=== PATIENT | female | born 1980 | race Caucasian/White ===

== ENCOUNTER 2019-03-15 14:12 | Inpatient (IN) | payer MEDICAID, OTHER ==
[~2019-03-15] VITALS: Ht 165.1 cm; Wt 64.4 kg
[~2019-03-15 14:12] MED LIST: DIVA-78 PO; LEVO25TA9 PO; MIRT-92 PO; PRAZ2 PO; QUET200T PO; QUET300T2 PO; TRAZ-257 PO
[2019-03-15] MEDS ORDERED: HALOPERIDOL 5 MG TABLET PO ONE (18:45)
[2019-03-15 19:13] LABS: AMPHET/METH SCREEN,URINE NEGATIVE (NEGATIVE); BARBITURATE SCREEN, URINE NEGATIVE (NEGATIVE); BENZODIAZEPINES SCREEN,URINE NEGATIVE (NEGATIVE); CANNABINOID SCREEN,URINE NEGATIVE (NEGATIVE); COCAINE SCREEN,URINE NEGATIVE (NEGATIVE); METHADONE SCREEN, URINE NEGATIVE (NEGATIVE); OPIATE SCREEN,URINE NEGATIVE (NEGATIVE)
[2019-03-15 19:14] LABS: PHENCYCLIDINE SCREEN,URINE NEGATIVE (NEGATIVE)
[2019-03-15] MEDS ORDERED: ZOLPIDEM TARTRATE 10 MG TABLET PO PRN (20:00)
[2019-03-15 20:20] LABS: BASOPHILS % (AUTO) 1.1 % (0.0-2.0); EOSINOPHILS % (AUTO) 2.1 % (1.0-6.0); HEMATOCRIT 31.5 % (36-46); HEMOGLOBIN 10.5 g/dL (12.0-16.0); LYMPHOCYTES # (AUTO) 2.3 K/uL (1.0-4.8); LYMPHOCYTES % (AUTO) 23.8 % (22.0-44.0); MEAN CORPUSCULAR HEMOGLOBIN 27.9 pg (26.0-34.0); MEAN CORPUSCULAR HGB CONC 33.3 G/dL (31.0-37.0); MEAN CORPUSCULAR VOLUME 84 fL (80-100); MONOCYTES # (AUTO) 0.9 K/uL (0.1-1.0); MONOCYTES % (AUTO) 9.3 % (2.0-9.0); NEUTROPHILS # (AUTO) 6.2 K/uL (1.8-7.7); NEUTROPHILS % (AUTO) 63.7 % (40.0-70.0); PLATELET COUNT (AUTO) 284 K/uL (150-450); RED BLOOD CELL COUNT(AUTO) 3.76 MIL/uL (4.00-5.20); RED CELL DISTRIBUTION WIDTH 13.5 % (11.5-14.5)
[2019-03-15 20:34] LABS: ANION GAP 9 mmol/L (8-16); CALCIUM, TOTAL 8.5 mg/dL (8.8-10.5); CARBON DIOXIDE 26 mmol/L (22-29); CHLORIDE 104 mmol/L (98-107); CREATININE 0.71 mg/dL (0.60-1.30); GLOMERULAR FILTR. RATE CALC > 60 mL/min (>60); GLUCOSE,RANDOM 126 mg/dL (70-110); POTASSIUM 4.1 mmol/L (3.5-5.1); SODIUM SERUM 139 mmol/L (136-145); UREA NITROGEN, BLOOD 16 mg/dL (7-18)
[2019-03-15 20:38] LABS: ALANINE AMINOTRANSFERASE 12 U/L (12-78); ALBUMIN 3.5 g/dL (3.4-5.0); ALKALINE PHOSPHATASE 49 U/L (46-116); ASPARTATE AMINOTRANSFERASE 13 U/L (15-37); BILIRUBIN,TOTAL 0.1 mg/dL (0.1-1.0); TOTAL PROTEIN, SERUM 6.5 g/dL (6.4-8.2)
[2019-03-15 22:21] VITALS: BP 128/75
[2019-03-15] MEDS ORDERED: ALBUTEROL SULFATE HFA 90 MCG/PUFF 8 GM INHALER IH PRN (23:00)
[2019-03-15] MEDS ORDERED: PETROLATUM,WHITE 28 GM JELLY TP PRN (23:00)
[2019-03-15] MEDS ORDERED: CloNIDine HCL 0.1 MG TABLET PO PRN (23:00)
[2019-03-15] MEDS ORDERED: DOCUSATE SODIUM 100 MG CAPSULE PO PRN (23:00)
[2019-03-15] MEDS ORDERED: LOPERAMIDE HCL 2 MG CAPSULE PO PRN (23:00)
[2019-03-15] MEDS ORDERED: GuaiFENesin/D-METHORPHAN [SUGAR-FREE] 200-20MG/10 ML SYRUP UDCUP PO PRN (23:00)
[2019-03-15] MEDS ORDERED: MAG HYDROX/AL HYDROX/SIMETH ES 30 ML SUSPENSION UDCUP PO PRN (23:00)
[2019-03-15] MEDS ORDERED: ONDANSETRON HCL 4 MG TABLET PO PRN (23:00)
[2019-03-15] MEDS ORDERED: MAGNESIUM HYDROXIDE SUSPENSION 30 ML UDCUP PO PRN (23:00)
[2019-03-16] MEDS: LEVOTHYROXINE SODIUM 25 MCG TABLET PO SCH (07:07)
[2019-03-16 07:46] LABS: HEMOGLOBIN A1C 5.7 % (4.5-6.2)
[2019-03-16 07:52] LABS: CHOL/HDL RATIO 5.5 (3.9-5.7)
[2019-03-16 08:57] VITALS: BP 119/56
[2019-03-16] MEDS: QUEtiapine FUMARATE 200 MG TABLET PO SCH ×2 (12:57→17:03)
[2019-03-16] MEDS: LORazepam 2 MG TABLET PO PRN (14:27)
[2019-03-16] MEDS: HALOPERIDOL 5 MG TABLET PO PRN (14:27)
[2019-03-16] MEDS: DIVALPROEX SODIUM 500 MG DR TABLET PO SCH (17:03)
[2019-03-16 18:12] VITALS: BP 114/77
[2019-03-16] MEDS: MIRTAZAPINE 15 MG TABLET PO SCH (20:19)
[2019-03-16] MEDS: TraZODone HCL 100 MG TABLET PO SCH (20:19)
[2019-03-16] MEDS: PRAZOSIN HCL 2 MG CAPSULE PO SCH (20:19)
[2019-03-17] MEDS: LEVOTHYROXINE SODIUM 25 MCG TABLET PO SCH (06:55)
[2019-03-17 08:20] VITALS: BP 97/66
[2019-03-17] MEDS: QUEtiapine FUMARATE 200 MG TABLET PO SCH ×3 (08:38→16:34)
[2019-03-17] MEDS: DIVALPROEX SODIUM 500 MG DR TABLET PO SCH ×2 (08:38→16:32)
[2019-03-17 16:34] VITALS: BP 103/67
[2019-03-17] MEDS: TraZODone HCL 100 MG TABLET PO SCH (20:29)
[2019-03-17] MEDS: PRAZOSIN HCL 2 MG CAPSULE PO SCH (20:29)
[2019-03-17] MEDS: MIRTAZAPINE 15 MG TABLET PO SCH (20:29)
[2019-03-18] MEDS: LEVOTHYROXINE SODIUM 25 MCG TABLET PO SCH (07:02)
[2019-03-18] MEDS: DIVALPROEX SODIUM 500 MG DR TABLET PO SCH ×2 (08:50→16:31)
[2019-03-18] MEDS: OMEGA-3/DHA/EPA/FISH OIL 1,000 MG CAPSULE PO SCH (08:50)
[2019-03-18] MEDS: QUEtiapine FUMARATE 200 MG TABLET PO SCH ×3 (08:50→16:31)
[2019-03-18 09:06] VITALS: BP 104/68
[2019-03-18] MEDS: HALOPERIDOL 5 MG TABLET PO PRN (10:00)
[2019-03-18] MEDS: LORazepam 2 MG TABLET PO PRN ×2 (10:00→16:31)
[2019-03-18 17:55] VITALS: BP 102/77
[2019-03-18 20:48] VITALS: BP 111/65
[2019-03-18] MEDS: PRAZOSIN HCL 2 MG CAPSULE PO SCH (20:49)
[2019-03-18] MEDS: TraZODone HCL 100 MG TABLET PO SCH (20:49)
[2019-03-18] MEDS: MIRTAZAPINE 15 MG TABLET PO SCH (20:50)
[2019-03-19] MEDS: LEVOTHYROXINE SODIUM 25 MCG TABLET PO SCH (06:32)
[2019-03-19] MEDS: OMEGA-3/DHA/EPA/FISH OIL 1,000 MG CAPSULE PO SCH (07:44)
[2019-03-19] MEDS: HALOPERIDOL 5 MG TABLET PO PRN ×2 (07:45→13:49)
[2019-03-19] MEDS: LORazepam 2 MG TABLET PO PRN ×2 (07:45→13:49)
[2019-03-19] MEDS: QUEtiapine FUMARATE 200 MG TABLET PO SCH ×3 (07:45→16:02)
[2019-03-19] MEDS: DIVALPROEX SODIUM 500 MG DR TABLET PO SCH ×2 (07:45→16:02)
[2019-03-19 08:27] VITALS: BP 109/67
[2019-03-19 16:38] VITALS: BP 114/73
[2019-03-19] MEDS: PRAZOSIN HCL 2 MG CAPSULE PO SCH (20:24)
[2019-03-19] MEDS: MIRTAZAPINE 15 MG TABLET PO SCH (20:24)
[2019-03-19] MEDS: TraZODone HCL 100 MG TABLET PO SCH (20:24)
[2019-03-20] MEDS: LEVOTHYROXINE SODIUM 25 MCG TABLET PO SCH (06:43)
[2019-03-20] MEDS: QUEtiapine FUMARATE 200 MG TABLET PO SCH ×3 (07:43→16:44)
[2019-03-20] MEDS: LORazepam 2 MG TABLET PO PRN ×2 (07:43→12:46)
[2019-03-20] MEDS: OMEGA-3/DHA/EPA/FISH OIL 1,000 MG CAPSULE PO SCH (07:43)
[2019-03-20] MEDS: DIVALPROEX SODIUM 500 MG DR TABLET PO SCH ×2 (07:43→16:44)
[2019-03-20] MEDS: HALOPERIDOL 5 MG TABLET PO PRN ×2 (07:44→12:46)
[2019-03-20 09:50] VITALS: BP 108/72
[2019-03-20 16:49] VITALS: BP 103/70
[2019-03-20] MEDS: TraZODone HCL 100 MG TABLET PO SCH (20:02)
[2019-03-20] MEDS: MIRTAZAPINE 15 MG TABLET PO SCH (20:02)
[2019-03-20 20:03] VITALS: BP 136/76
[2019-03-20] MEDS: PRAZOSIN HCL 2 MG CAPSULE PO SCH (20:03)
[2019-03-21] MEDS: LEVOTHYROXINE SODIUM 25 MCG TABLET PO SCH (06:40)
[2019-03-21] MEDS: OMEGA-3/DHA/EPA/FISH OIL 1,000 MG CAPSULE PO SCH (09:21)
[2019-03-21] MEDS: QUEtiapine FUMARATE 200 MG TABLET PO SCH ×3 (09:21→17:18)
[2019-03-21] MEDS: DIVALPROEX SODIUM 500 MG DR TABLET PO SCH ×2 (09:21→17:18)
[2019-03-21 09:37] VITALS: BP 107/70
[2019-03-21] MEDS: ACETAMINOPHEN 325 MG TABLET PO PRN (09:37)
[2019-03-21] MEDS: LORazepam 2 MG TABLET PO PRN (12:40)
[2019-03-21] MEDS: TraZODone HCL 100 MG TABLET PO SCH (21:17)
[2019-03-21] MEDS: MIRTAZAPINE 15 MG TABLET PO SCH (21:17)
[2019-03-21] MEDS: PRAZOSIN HCL 2 MG CAPSULE PO SCH (21:18)
[2019-03-21 21:31] VITALS: BP 104/60
[2019-03-22] MEDS: LEVOTHYROXINE SODIUM 25 MCG TABLET PO SCH (06:50)
[2019-03-22] MEDS: DIVALPROEX SODIUM 500 MG DR TABLET PO SCH ×2 (08:31→16:02)
[2019-03-22] MEDS: QUEtiapine FUMARATE 200 MG TABLET PO SCH ×3 (08:31→16:02)
[2019-03-22] MEDS: OMEGA-3/DHA/EPA/FISH OIL 1,000 MG CAPSULE PO SCH (08:31)
[2019-03-22 09:03] VITALS: BP 122/76
[2019-03-22] MEDS: LORazepam 2 MG TABLET PO PRN ×3 (11:17→15:52)
[2019-03-22] MEDS: NICOTINE 14 MG/24 HOUR PATCH TD PRN (16:59)
[2019-03-22 17:34] VITALS: BP 115/77
[2019-03-22] MEDS: PRAZOSIN HCL 2 MG CAPSULE PO SCH (20:06)
[2019-03-22] MEDS: TraZODone HCL 100 MG TABLET PO SCH (20:06)
[2019-03-22] MEDS: MIRTAZAPINE 15 MG TABLET PO SCH (20:06)
[2019-03-23 02:00] VITALS: BP 119/72
[2019-03-23] MEDS: LEVOTHYROXINE SODIUM 25 MCG TABLET PO SCH (06:34)
[2019-03-23 09:51] VITALS: BP 123/75
[2019-03-23] MEDS: QUEtiapine FUMARATE 200 MG TABLET PO SCH ×3 (09:51→16:17)
[2019-03-23] MEDS: OMEGA-3/DHA/EPA/FISH OIL 1,000 MG CAPSULE PO SCH (09:51)
[2019-03-23] MEDS: ACETAMINOPHEN 325 MG TABLET PO PRN (09:51)
[2019-03-23] MEDS: DIVALPROEX SODIUM 500 MG DR TABLET PO SCH ×2 (09:51→16:17)
[2019-03-23 17:57] VITALS: BP 96/63
[2019-03-23] MEDS: MIRTAZAPINE 15 MG TABLET PO SCH (20:36)
[2019-03-23] MEDS: TraZODone HCL 100 MG TABLET PO SCH (20:36)
[2019-03-23] MEDS: PRAZOSIN HCL 2 MG CAPSULE PO SCH (20:36)
[2019-03-24] MEDS: LEVOTHYROXINE SODIUM 25 MCG TABLET PO SCH (06:45)
[2019-03-24 08:00] VITALS: BP 105/58
[2019-03-24] MEDS: OMEGA-3/DHA/EPA/FISH OIL 1,000 MG CAPSULE PO SCH (08:17)
[2019-03-24] MEDS: DIVALPROEX SODIUM 500 MG DR TABLET PO SCH ×2 (08:17→16:13)
[2019-03-24] MEDS: QUEtiapine FUMARATE 200 MG TABLET PO SCH ×3 (08:17→16:13)
[2019-03-24] MEDS: NICOTINE 14 MG/24 HOUR PATCH TD PRN (08:20)
[2019-03-24] MEDS: LORazepam 2 MG TABLET PO PRN (15:13)
[2019-03-24 17:04] VITALS: BP 98/69
[2019-03-24] MEDS ORDERED: OxyCODONE HCL/ACETAMINOPHEN 5-325 MG TABLET PO ONE (17:45)
[2019-03-24] MEDS: TraZODone HCL 100 MG TABLET PO SCH (20:16)
[2019-03-24] MEDS: PRAZOSIN HCL 2 MG CAPSULE PO SCH (20:16)
[2019-03-24] MEDS: MIRTAZAPINE 15 MG TABLET PO SCH (20:16)
[2019-03-25 04:42] LABS: APPEARANCE,URINE CLOUDY (CLEAR); BILIRUBIN,URINE NEGATIVE (NEGATIVE); GLUCOSE, URINE (UA) NEGATIVE (NEGATIVE); KETONES,URINE 15 mg/dL (NEGATIVE); LEUKOCYTE ESTERASE ,URINE NEGATIVE (NEGATIVE); NITRATE,URINE NEGATIVE (NEGATIVE); OCCULT BLOOD,URINE TRACE (NEGATIVE); PROTEIN,URINE TRACE (NEGATIVE); UROBILINOGEN,URINE 0.2 mg/dL (<=1.0)
[2019-03-25 04:49] LABS: AMORPHOUS SEDIMENT,UR Few /LPF (None Seen); BACTERIA,URINE Few /HPF (None Seen); SQUAMOUS EPITHELIAL CELL,UR Rare /LPF (None Seen); WBC,URINE 0-2 /HPF (0-5)
[2019-03-25] MEDS: LEVOTHYROXINE SODIUM 25 MCG TABLET PO SCH (06:41)
[2019-03-25] MEDS: QUEtiapine FUMARATE 200 MG TABLET PO SCH ×2 (08:51→13:12)
[2019-03-25] MEDS: DIVALPROEX SODIUM 500 MG DR TABLET PO SCH (08:51)
[2019-03-25] MEDS: OMEGA-3/DHA/EPA/FISH OIL 1,000 MG CAPSULE PO SCH (08:51)
[2019-03-25 09:33] VITALS: BP 94/68
[2019-03-25] MEDS: LORazepam 2 MG TABLET PO PRN (13:12)
[2019-03-25] MEDS ORDERED: OMEG-135 PO (13:16)
== END 2019-03-25 14:45 | disposition home or self-care (01) | DRG 885 ==
LOC: EMS 14:14 → 3EC 20:30 → 3EI 03-20 20:00
PROVIDERS: ADMIT Psychiatry & Neurology Child & Adolescent Psychiatry; ATTEND Psychiatry & Neurology Child & Adolescent Psychiatry
DX: F25.0 Schizoaffective disorder, bipolar type (principal); R45.851 Suicidal ideations; F32.9 Major depressive disorder, single episode, unspecified; E03.9 Hypothyroidism, unspecified; K58.9 Irritable bowel syndrome, unspecified; D64.9 Anemia, unspecified; E78.5 Hyperlipidemia, unspecified; F29 Unspecified psychosis not due to a substance or known physiological condition; J30.9 Allergic rhinitis, unspecified; F41.9 Anxiety disorder, unspecified; F15.90 Other stimulant use, unspecified, uncomplicated; F60.3 Borderline personality disorder; Z88.6 Allergy status to analgesic agent; Z88.8 Allergy status to other drugs, medicaments and biological substances; Z79.899 Other long term (current) drug therapy; Z91.19 Patient's noncompliance with other medical treatment and regimen; Z91.5 Personal history of self-harm; Z59.0 Homelessness; Z85.41 Personal history of malignant neoplasm of cervix uteri; Z72.89 Other problems related to lifestyle
CPT/HCPCS: 83036; 84443; 93005; G0480; J3535; Q0162

== ENCOUNTER 2019-05-06 11:58 | Inpatient (IN) | payer MEDICAID, OTHER ==
[~2019-05-06] VITALS: Ht 165.1 cm; Wt 61.7 kg
[~2019-05-06 11:58] MED LIST changes: +OMEG-135 PO; -QUET300T2 PO
[2019-05-06 12:53] LABS: EOSINOPHILS % (AUTO) 2.4 % (1.0-6.0); HEMATOCRIT 37.5 % (36-46); LYMPHOCYTES # (AUTO) 2.3 K/uL (1.0-4.8); LYMPHOCYTES % (AUTO) 25.5 % (22.0-44.0); MEAN CORPUSCULAR HEMOGLOBIN 26.8 pg (26.0-34.0); MEAN CORPUSCULAR HGB CONC 32.1 G/dL (31.0-37.0); MEAN CORPUSCULAR VOLUME 83 fL (80-100); MONOCYTES # (AUTO) 0.9 K/uL (0.1-1.0); MONOCYTES % (AUTO) 9.9 % (2.0-9.0); NEUTROPHILS # (AUTO) 5.5 K/uL (1.8-7.7); NEUTROPHILS % (AUTO) 61.2 % (40.0-70.0); PLATELET COUNT (AUTO) 348 K/uL (150-450); RED CELL DISTRIBUTION WIDTH 14.7 % (11.5-14.5)
[2019-05-06 13:01] LABS: ANION GAP 7 mmol/L (8-16); CALCIUM, TOTAL 8.9 mg/dL (8.8-10.5); CARBON DIOXIDE 27 mmol/L (22-29); CHLORIDE 102 mmol/L (98-107); CREATININE 0.62 mg/dL (0.60-1.30); GLOMERULAR FILTR. RATE CALC > 60 mL/min (>60); GLUCOSE,RANDOM 87 mg/dL (70-110); POTASSIUM 3.7 mmol/L (3.5-5.1); SODIUM SERUM 136 mmol/L (136-145); UREA NITROGEN, BLOOD 9 mg/dL (7-18)
[2019-05-06 13:13] LABS: ALANINE AMINOTRANSFERASE 18 U/L (12-78); ALBUMIN 3.7 g/dL (3.4-5.0); ALKALINE PHOSPHATASE 62 U/L (46-116); ASPARTATE AMINOTRANSFERASE 12 U/L (15-37); BILIRUBIN,TOTAL 0.1 mg/dL (0.1-1.0); HCG,QUANTITATIVE < 1 mIU/mL (0-6); TOTAL PROTEIN, SERUM 7.5 g/dL (6.4-8.2)
[2019-05-06 13:14] LABS: VALPROIC ACID < 3 mcg/mL (50-100)
[2019-05-06] MEDS ORDERED: GuaiFENesin/D-METHORPHAN [SUGAR-FREE] 200-20MG/10 ML SYRUP UDCUP PO PRN (15:15)
[2019-05-06] MEDS ORDERED: PALIPERIDONE 1.5 MG ER TABLET PO PRN (15:15)
[2019-05-06] MEDS ORDERED: LOPERAMIDE HCL 2 MG CAPSULE PO PRN (15:15)
[2019-05-06] MEDS ORDERED: MAGNESIUM HYDROXIDE SUSPENSION 30 ML UDCUP PO PRN (15:15)
[2019-05-06] MEDS ORDERED: PALIPERIDONE PALMITATE 234 MG/1.5 ML SYRINGE IM ONE (15:15)
[2019-05-06] MEDS ORDERED: TUBERCULIN, PURIFIED PROTEIN DERIVATIVE 5 TU/0.1 ML SYRINGE ID ONE (15:15)
[2019-05-06] MEDS ORDERED: ACETAMINOPHEN 325 MG TABLET PO PRN (15:15)
[2019-05-06] MEDS ORDERED: HydrOXYzine PAMOATE 50 MG CAPSULE PO PRN (15:15)
[2019-05-06] MEDS ORDERED: PROMETHAZINE HCL 25 MG TABLET PO PRN (15:15)
[2019-05-06 15:43] LABS: AMPHET/METH SCREEN,URINE NEGATIVE (NEGATIVE); BARBITURATE SCREEN, URINE NEGATIVE (NEGATIVE); BENZODIAZEPINES SCREEN,URINE NEGATIVE (NEGATIVE); CANNABINOID SCREEN,URINE NEGATIVE (NEGATIVE); COCAINE SCREEN,URINE NEGATIVE (NEGATIVE); METHADONE SCREEN, URINE NEGATIVE (NEGATIVE); OPIATE SCREEN,URINE NEGATIVE (NEGATIVE)
[2019-05-06 15:47] LABS: PHENCYCLIDINE SCREEN,URINE NEGATIVE (NEGATIVE)
[2019-05-06] MEDS ORDERED: NICOTINE 21 MG/24 HOUR PATCH TD PRN (19:30)
[2019-05-06 20:48] VITALS: BP 124/72
[2019-05-06] MEDS: THIAMINE HCL 100 MG TABLET PO SCH (20:50)
[2019-05-06] MEDS ORDERED: MIRTAZAPINE 15 MG TABLET PO SCH (21:00)
[2019-05-06] MEDS ORDERED: PALIPERIDONE 3 MG ER TABLET PO SCH (21:00)
[2019-05-06] MEDS: DIVALPROEX SODIUM 250 MG ER TABLET PO SCH (21:23)
[2019-05-06] MEDS: PRAZOSIN HCL 1 MG CAPSULE PO SCH (21:23)
[2019-05-07 00:25] VITALS: BP 102/63
[2019-05-07] MEDS ORDERED: INFLUENZA VIRUS VACCINE QVS 2019-20 (3YR+)/PF 60 MCG/0.5 ML SYRINGE IM ONE (06:45)
[2019-05-07 08:05] VITALS: BP 110/66
[2019-05-07] MEDS: THIAMINE HCL 100 MG TABLET PO SCH ×2 (08:15→16:21)
[2019-05-07] MEDS: OMEGA-3/DHA/EPA/FISH OIL 1,000 MG CAPSULE PO SCH (08:15)
[2019-05-07] MEDS: NALTREXONE HCL 50 MG TABLET PO SCH (08:15)
[2019-05-07] MEDS: MULTIVITAMINS WITH MINERALS, THERAPEUTIC TABLET PO SCH (08:15)
[2019-05-07] MEDS: FOLIC ACID 1 MG TABLET PO SCH (08:15)
[2019-05-07 16:02] VITALS: BP 108/74
[2019-05-07] MEDS: LORazepam 1 MG TABLET PO PRN (16:20)
[2019-05-07] MEDS: DIVALPROEX SODIUM 250 MG ER TABLET PO SCH (20:20)
[2019-05-07] MEDS: MIRTAZAPINE 30 MG TABLET PO SCH (20:20)
[2019-05-07] MEDS: PRAZOSIN HCL 1 MG CAPSULE PO SCH (20:20)
[2019-05-08 00:07] VITALS: BP 100/57
[2019-05-08] MEDS: LEVOTHYROXINE SODIUM 25 MCG TABLET PO SCH (06:23)
[2019-05-08 08:02] VITALS: BP 117/65
[2019-05-08] MEDS: THIAMINE HCL 100 MG TABLET PO SCH ×2 (09:09→15:58)
[2019-05-08] MEDS: MULTIVITAMINS WITH MINERALS, THERAPEUTIC TABLET PO SCH (09:09)
[2019-05-08] MEDS: NALTREXONE HCL 50 MG TABLET PO SCH (09:10)
[2019-05-08] MEDS: OMEGA-3/DHA/EPA/FISH OIL 1,000 MG CAPSULE PO SCH (09:11)
[2019-05-08] MEDS: FOLIC ACID 1 MG TABLET PO SCH (09:11)
[2019-05-08] MEDS: LORazepam 1 MG TABLET PO PRN (16:06)
[2019-05-08] MEDS ORDERED: LORazepam 2 MG TABLET PO ONE (16:15)
[2019-05-08 16:29] VITALS: BP 102/68
[2019-05-08] MEDS: PROPRANOLOL HCL 10 MG TABLET PO SCH (17:00)
[2019-05-08] MEDS: MIRTAZAPINE 30 MG TABLET PO SCH (20:38)
[2019-05-08] MEDS: PRAZOSIN HCL 1 MG CAPSULE PO SCH (20:38)
[2019-05-08] MEDS: DIVALPROEX SODIUM 250 MG ER TABLET PO SCH (20:38)
[2019-05-08] MEDS: TRIHEXYPHENIDYL HCL 2 MG TABLET PO SCH (20:38)
[2019-05-09 00:33] VITALS: BP 103/62
[2019-05-09] MEDS: LEVOTHYROXINE SODIUM 25 MCG TABLET PO SCH (06:46)
[2019-05-09 08:11] VITALS: BP 100/66
[2019-05-09] MEDS: PROPRANOLOL HCL 10 MG TABLET PO SCH ×3 (09:00→16:21)
[2019-05-09] MEDS: TRIHEXYPHENIDYL HCL 2 MG TABLET PO SCH ×3 (09:01→16:21)
[2019-05-09] MEDS: FOLIC ACID 1 MG TABLET PO SCH (09:01)
[2019-05-09] MEDS: OMEGA-3/DHA/EPA/FISH OIL 1,000 MG CAPSULE PO SCH (09:01)
[2019-05-09] MEDS: NALTREXONE HCL 50 MG TABLET PO SCH (09:01)
[2019-05-09] MEDS: THIAMINE HCL 100 MG TABLET PO SCH ×2 (09:01→16:21)
[2019-05-09] MEDS: MULTIVITAMINS WITH MINERALS, THERAPEUTIC TABLET PO SCH (09:02)
[2019-05-09 13:00] VITALS: BP 100/62
[2019-05-09 16:02] VITALS: BP 109/50
[2019-05-09] MEDS: BACITRACIN 28.4 GM OINTMENT TP SCH (16:51)
[2019-05-09] MEDS: DIVALPROEX SODIUM 250 MG ER TABLET PO SCH (20:08)
[2019-05-09] MEDS: MIRTAZAPINE 30 MG TABLET PO SCH (20:09)
[2019-05-09] MEDS ORDERED: PRAZOSIN HCL 1 MG CAPSULE PO SCH (21:00)
[2019-05-09] MEDS: ZOLPIDEM TARTRATE 10 MG TABLET PO PRN (21:03)
[2019-05-10 01:15] VITALS: BP 115/60
[2019-05-10] MEDS: LEVOTHYROXINE SODIUM 25 MCG TABLET PO SCH (06:28)
[2019-05-10 08:07] VITALS: BP 102/69
[2019-05-10] MEDS: PROPRANOLOL HCL 10 MG TABLET PO SCH ×3 (09:00→16:32)
[2019-05-10] MEDS ORDERED: PALIPERIDONE PALMITATE 156 MG/ML SYRINGE IM ONE (09:00)
[2019-05-10] MEDS: OMEGA-3/DHA/EPA/FISH OIL 1,000 MG CAPSULE PO SCH (09:02)
[2019-05-10] MEDS: TRIHEXYPHENIDYL HCL 2 MG TABLET PO SCH ×3 (09:02→16:33)
[2019-05-10] MEDS: BACITRACIN 28.4 GM OINTMENT TP SCH ×2 (09:02→16:40)
[2019-05-10] MEDS: FOLIC ACID 1 MG TABLET PO SCH (09:02)
[2019-05-10] MEDS: NALTREXONE HCL 50 MG TABLET PO SCH (09:02)
[2019-05-10] MEDS: THIAMINE HCL 100 MG TABLET PO SCH ×2 (09:02→16:31)
[2019-05-10] MEDS: MULTIVITAMINS WITH MINERALS, THERAPEUTIC TABLET PO SCH (09:02)
[2019-05-10] MEDS: LORazepam 1 MG TABLET PO PRN (11:19)
[2019-05-10 12:25] VITALS: BP 100/58
[2019-05-10 16:10] VITALS: BP 103/62
[2019-05-10] MEDS: CYCLOBENZAPRINE HCL 10 MG TABLET PO SCH ×2 (16:31→20:07)
[2019-05-10] MEDS: TraMADol HCL 50 MG TABLET PO SCH ×2 (16:32→20:06)
[2019-05-10] MEDS: PRAZOSIN HCL 1 MG CAPSULE PO SCH (20:04)
[2019-05-10] MEDS: DIVALPROEX SODIUM 250 MG ER TABLET PO SCH (20:05)
[2019-05-10] MEDS: MIRTAZAPINE 30 MG TABLET PO SCH (20:07)
[2019-05-10] MEDS: ZOLPIDEM TARTRATE 10 MG TABLET PO PRN (20:10)
[2019-05-11 05:04] VITALS: BP 111/60
[2019-05-11] MEDS: LEVOTHYROXINE SODIUM 25 MCG TABLET PO SCH (06:33)
[2019-05-11 07:32] LABS: HEMOGLOBIN A1C 6.1 % (3.8-5.6)
[2019-05-11 07:52] LABS: CHOL/HDL RATIO 3.2 (3.9-5.7); THYROID STIMULATING HORMONE 9.7 uIU/mL (0.36-3.74)
[2019-05-11 08:07] LABS: FREE T4 (FREE THYROXINE) 0.66 ng/dL (0.76-1.46)
[2019-05-11 08:43] VITALS: BP 107/69
[2019-05-11 09:10] VITALS: BP 112/72
[2019-05-11] MEDS: OMEGA-3/DHA/EPA/FISH OIL 1,000 MG CAPSULE PO SCH (09:11)
[2019-05-11] MEDS: MULTIVITAMINS WITH MINERALS, THERAPEUTIC TABLET PO SCH (09:11)
[2019-05-11] MEDS: TRIHEXYPHENIDYL HCL 2 MG TABLET PO SCH ×3 (09:11→16:57)
[2019-05-11] MEDS: THIAMINE HCL 100 MG TABLET PO SCH ×2 (09:11→16:57)
[2019-05-11] MEDS: NALTREXONE HCL 50 MG TABLET PO SCH (09:12)
[2019-05-11] MEDS: PROPRANOLOL HCL 10 MG TABLET PO SCH ×3 (09:12→16:58)
[2019-05-11] MEDS: FOLIC ACID 1 MG TABLET PO SCH (09:12)
[2019-05-11] MEDS: BACITRACIN 28.4 GM OINTMENT TP SCH ×2 (09:12→17:01)
[2019-05-11] MEDS: TraMADol HCL 50 MG TABLET PO SCH ×4 (09:12→20:09)
[2019-05-11] MEDS: CYCLOBENZAPRINE HCL 10 MG TABLET PO SCH ×4 (09:12→20:10)
[2019-05-11 12:35] VITALS: BP 100/61
[2019-05-11 16:21] VITALS: BP 103/60
[2019-05-11 20:00] VITALS: BP 100/61
[2019-05-11] MEDS: MIRTAZAPINE 30 MG TABLET PO SCH (20:09)
[2019-05-11] MEDS: DIVALPROEX SODIUM 250 MG ER TABLET PO SCH (20:09)
[2019-05-11] MEDS: PRAZOSIN HCL 1 MG CAPSULE PO SCH (20:11)
[2019-05-12] MEDS: LEVOTHYROXINE SODIUM 25 MCG TABLET PO SCH (06:39)
[2019-05-12 06:44] VITALS: BP 100/66
[2019-05-12 08:45] VITALS: BP 101/58
[2019-05-12] MEDS: PROPRANOLOL HCL 10 MG TABLET PO SCH ×3 (09:00→16:26)
[2019-05-12] MEDS: TRIHEXYPHENIDYL HCL 2 MG TABLET PO SCH ×3 (09:12→16:25)
[2019-05-12] MEDS: CYCLOBENZAPRINE HCL 10 MG TABLET PO SCH ×4 (09:13→20:07)
[2019-05-12] MEDS: THIAMINE HCL 100 MG TABLET PO SCH ×2 (09:14→16:26)
[2019-05-12] MEDS: NALTREXONE HCL 50 MG TABLET PO SCH (09:14)
[2019-05-12] MEDS: OMEGA-3/DHA/EPA/FISH OIL 1,000 MG CAPSULE PO SCH (09:14)
[2019-05-12] MEDS: FOLIC ACID 1 MG TABLET PO SCH (09:14)
[2019-05-12] MEDS: TraMADol HCL 50 MG TABLET PO SCH ×4 (09:14→20:09)
[2019-05-12] MEDS: MULTIVITAMINS WITH MINERALS, THERAPEUTIC TABLET PO SCH (09:14)
[2019-05-12] MEDS: BACITRACIN 28.4 GM OINTMENT TP SCH ×2 (09:14→16:26)
[2019-05-12 13:05] VITALS: BP 100/52
[2019-05-12 16:11] VITALS: BP 103/60
[2019-05-12] MEDS: MAG HYDROX/AL HYDROX/SIMETH ES 30 ML SUSPENSION UDCUP PO PRN (16:26)
[2019-05-12 20:00] VITALS: BP 98/57
[2019-05-12] MEDS: MIRTAZAPINE 30 MG TABLET PO SCH (20:07)
[2019-05-12] MEDS: DIVALPROEX SODIUM 250 MG ER TABLET PO SCH (20:07)
[2019-05-12] MEDS: PRAZOSIN HCL 1 MG CAPSULE PO SCH (20:09)
[2019-05-13 05:11] VITALS: BP 98/58
[2019-05-13] MEDS: LEVOTHYROXINE SODIUM 25 MCG TABLET PO SCH (06:23)
[2019-05-13 08:42] VITALS: BP 105/58
[2019-05-13] MEDS: TRIHEXYPHENIDYL HCL 2 MG TABLET PO SCH ×3 (09:14→17:24)
[2019-05-13] MEDS: TraMADol HCL 50 MG TABLET PO SCH ×4 (09:14→20:26)
[2019-05-13] MEDS: THIAMINE HCL 100 MG TABLET PO SCH ×2 (09:15→17:24)
[2019-05-13] MEDS: MULTIVITAMINS WITH MINERALS, THERAPEUTIC TABLET PO SCH (09:15)
[2019-05-13] MEDS: OMEGA-3/DHA/EPA/FISH OIL 1,000 MG CAPSULE PO SCH (09:15)
[2019-05-13] MEDS: FOLIC ACID 1 MG TABLET PO SCH (09:15)
[2019-05-13] MEDS: CYCLOBENZAPRINE HCL 10 MG TABLET PO SCH ×4 (09:17→20:26)
[2019-05-13] MEDS: PROPRANOLOL HCL 10 MG TABLET PO SCH ×3 (09:17→17:00)
[2019-05-13] MEDS: BACITRACIN 28.4 GM OINTMENT TP SCH ×2 (09:18→17:27)
[2019-05-13] MEDS: NALTREXONE HCL 50 MG TABLET PO SCH (09:18)
[2019-05-13 12:53] VITALS: BP 109/62
[2019-05-13 16:23] VITALS: BP 100/56
[2019-05-13] MEDS: DIVALPROEX SODIUM 250 MG ER TABLET PO SCH (20:22)
[2019-05-13] MEDS: MIRTAZAPINE 30 MG TABLET PO SCH (20:24)
[2019-05-13] MEDS: PRAZOSIN HCL 2 MG CAPSULE PO SCH (21:27)
[2019-05-13] MEDS: ZOLPIDEM TARTRATE 10 MG TABLET PO PRN (21:27)
[2019-05-14 00:35] VITALS: BP 98/60
[2019-05-14] MEDS: LEVOTHYROXINE SODIUM 25 MCG TABLET PO SCH (06:28)
[2019-05-14] MEDS: TRIHEXYPHENIDYL HCL 2 MG TABLET PO SCH ×3 (08:54→17:46)
[2019-05-14] MEDS: PROPRANOLOL HCL 10 MG TABLET PO SCH ×3 (08:54→17:00)
[2019-05-14] MEDS: NALTREXONE HCL 50 MG TABLET PO SCH (08:54)
[2019-05-14] MEDS: OMEGA-3/DHA/EPA/FISH OIL 1,000 MG CAPSULE PO SCH (08:54)
[2019-05-14 08:55] VITALS: BP 87/45
[2019-05-14] MEDS: TraMADol HCL 50 MG TABLET PO SCH ×4 (08:55→20:55)
[2019-05-14] MEDS: FOLIC ACID 1 MG TABLET PO SCH (08:55)
[2019-05-14] MEDS: MULTIVITAMINS WITH MINERALS, THERAPEUTIC TABLET PO SCH (08:55)
[2019-05-14] MEDS: THIAMINE HCL 100 MG TABLET PO SCH ×2 (08:55→17:45)
[2019-05-14] MEDS: CYCLOBENZAPRINE HCL 10 MG TABLET PO SCH ×3 (08:55→17:46)
[2019-05-14] MEDS: BACITRACIN 28.4 GM OINTMENT TP SCH ×2 (08:58→17:50)
[2019-05-14] MEDS: LORazepam 1 MG TABLET PO PRN (13:29)
[2019-05-14 17:38] VITALS: BP 96/60
[2019-05-14] MEDS: PRAZOSIN HCL 2 MG CAPSULE PO SCH (20:50)
[2019-05-14] MEDS: MAG HYDROX/AL HYDROX/SIMETH ES 30 ML SUSPENSION UDCUP PO PRN (20:51)
[2019-05-14] MEDS: DIVALPROEX SODIUM 250 MG ER TABLET PO SCH (20:52)
[2019-05-14] MEDS: MIRTAZAPINE 30 MG TABLET PO SCH (20:53)
[2019-05-15 05:16] VITALS: BP 103/64
[2019-05-15] MEDS: LEVOTHYROXINE SODIUM 25 MCG TABLET PO SCH (06:30)
[2019-05-15 08:43] VITALS: BP 103/57
[2019-05-15] MEDS: MULTIVITAMINS WITH MINERALS, THERAPEUTIC TABLET PO SCH (08:58)
[2019-05-15] MEDS: NALTREXONE HCL 50 MG TABLET PO SCH (08:58)
[2019-05-15] MEDS: FOLIC ACID 1 MG TABLET PO SCH (08:58)
[2019-05-15] MEDS: THIAMINE HCL 100 MG TABLET PO SCH ×2 (08:58→17:04)
[2019-05-15] MEDS: OMEGA-3/DHA/EPA/FISH OIL 1,000 MG CAPSULE PO SCH (08:58)
[2019-05-15] MEDS: CYCLOBENZAPRINE HCL 10 MG TABLET PO SCH ×2 (08:59→17:04)
[2019-05-15] MEDS: TRIHEXYPHENIDYL HCL 2 MG TABLET PO SCH ×2 (08:59→17:09)
[2019-05-15] MEDS: TraMADol HCL 50 MG TABLET PO SCH ×4 (08:59→20:15)
[2019-05-15] MEDS: PROPRANOLOL HCL 10 MG TABLET PO SCH ×3 (08:59→17:00)
[2019-05-15] MEDS: BACITRACIN 28.4 GM OINTMENT TP SCH ×2 (09:13→17:10)
[2019-05-15 12:40] VITALS: BP 96/63
[2019-05-15 16:18] VITALS: BP 106/62
[2019-05-15] MEDS ORDERED: QUEtiapine FUMARATE 100 MG TABLET PO PRN (16:45)
[2019-05-15] MEDS: QUEtiapine FUMARATE 25 MG TABLET PO SCH (17:09)
[2019-05-15] MEDS: DIVALPROEX SODIUM 250 MG ER TABLET PO SCH (20:15)
[2019-05-15] MEDS: MIRTAZAPINE 30 MG TABLET PO SCH (20:15)
[2019-05-15] MEDS: PRAZOSIN HCL 2 MG CAPSULE PO SCH (20:17)
[2019-05-15 20:50] VITALS: BP 103/61
[2019-05-15] MEDS ORDERED: QUEtiapine FUMARATE 200 MG TABLET PO SCH (21:00)
[2019-05-16 00:22] VITALS: BP 111/66
[2019-05-16] MEDS: LEVOTHYROXINE SODIUM 25 MCG TABLET PO SCH (06:29)
[2019-05-16 08:12] VITALS: BP 101/62
[2019-05-16] MEDS: PROPRANOLOL HCL 10 MG TABLET PO SCH ×2 (08:14→13:00)
[2019-05-16] MEDS: TraMADol HCL 50 MG TABLET PO SCH ×2 (08:14→13:12)
[2019-05-16] MEDS: CYCLOBENZAPRINE HCL 10 MG TABLET PO SCH (08:14)
[2019-05-16] MEDS: BACITRACIN 28.4 GM OINTMENT TP SCH (08:14)
[2019-05-16] MEDS: FOLIC ACID 1 MG TABLET PO SCH (08:14)
[2019-05-16] MEDS: OMEGA-3/DHA/EPA/FISH OIL 1,000 MG CAPSULE PO SCH (08:14)
[2019-05-16] MEDS: MULTIVITAMINS WITH MINERALS, THERAPEUTIC TABLET PO SCH (08:14)
[2019-05-16] MEDS: TRIHEXYPHENIDYL HCL 2 MG TABLET PO SCH (08:14)
[2019-05-16] MEDS: NALTREXONE HCL 50 MG TABLET PO SCH (08:14)
[2019-05-16] MEDS: THIAMINE HCL 100 MG TABLET PO SCH (08:14)
[2019-05-16] MEDS: QUEtiapine FUMARATE 25 MG TABLET PO SCH ×2 (08:14→13:12)
[2019-05-16 13:00] VITALS: BP 103/60
[2019-05-16] MEDS ORDERED: TRIH2TAB3 PO (14:09)
[2019-05-16] MEDS ORDERED: PRAZ1 PO (14:09)
[2019-05-16] MEDS ORDERED: QUET100T33 PO (14:09)
[2019-05-16] MEDS ORDERED: QUET25TA34 PO (14:09)
[2019-05-16] MEDS ORDERED: DIVA250T45 PO (14:09)
[2019-05-16] MEDS ORDERED: PROP10TA72 PO (14:09)
[2019-05-16] MEDS ORDERED: NALT50TA PO (14:09)
[2019-05-16] MEDS ORDERED: MIRT30 PO (14:09)
[2019-05-16] MEDS ORDERED: OMEG-135 PO (14:09)
[2019-05-16] MEDS ORDERED: QUEtiapine FUMARATE 100 MG TABLET PO SCH (21:00)
[2019-05-16] MEDS ORDERED: MIRTAZAPINE 30 MG TABLET PO SCH (21:00)
[2019-05-16] MEDS ORDERED: PRAZOSIN HCL 1 MG CAPSULE PO SCH (21:00)
== END 2019-05-16 19:08 | disposition home or self-care (01) | DRG 750 ==
LOC: EMS 11:59 → B2S 16:05
PROVIDERS: ADMIT Psychiatry & Neurology Psychiatry; ATTEND Psychiatry & Neurology Psychiatry
DX: F25.9 Schizoaffective disorder, unspecified (principal); R45.851 Suicidal ideations; Z59.0 Homelessness; D64.9 Anemia, unspecified; E03.9 Hypothyroidism, unspecified; F15.90 Other stimulant use, unspecified, uncomplicated; F17.210 Nicotine dependence, cigarettes, uncomplicated; F60.0 Paranoid personality disorder; F12.90 Cannabis use, unspecified, uncomplicated; R45.87 Impulsiveness; Z65.3 Problems related to other legal circumstances; Z91.14 Patient's other noncompliance with medication regimen
CPT/HCPCS: 83036; 84439; 84443; 86592; 93005; G0480